=== PATIENT | female | born 1940 | race Caucasian/White ===

== ENCOUNTER 2017-10-11 14:17 | Outpatient (CLI) | payer MEDICARE | END 2017-10-11 14:18 | disposition home or self-care (01) | LOC: BICMAMMO 14:17 | PROVIDERS: ATTEND Family Medicine | DX: Z12.31 Encounter for screening mammogram for malignant neoplasm of breast (principal); Z13.820 Encounter for screening for osteoporosis; M81.0 Age-related osteoporosis without current pathological fracture; N28.1 Cyst of kidney, acquired | CPT/HCPCS: 76770; 77063; 77067; 77080 ==

== ENCOUNTER 2018-04-15 09:16 | Outpatient (CLI) | payer MEDICARE ==
--- NOTE | 2018-04-15 10:36 | ULT ---
ULTRASOUND RETROPERITONEUM COMPLETE: (RENAL) DATE: 04-15-18 HISTORY: 77-year-old female with chronic kidney disease, N18.2 and cystic kidney disease unspecified, Q61.9 COMPARISON: 10-11-17 FINDINGS: Right kidney measures 10 x 3.5 x 4 cm. Left kidney measures 10.5 x 5.5 x 5.5 cm. There is a very large, approximately 8 x 7.5 x 6 cm cyst exophytically protruding inferiorly from the lower pole of the left kidney. The measurements are larger than on the previous ultrasounds, but it is possible that the differences are due to slightly different placement of cursers. Pre void bladder volume is 35 ml at the time of this scan. There is no hydronephrosis bilaterally. Bilateral renal parenchymal thickness and parenchymal echogenicity are normal. IMPRESSION: 1. Large 8 cm exophytic cyst protruding from the lower pole of the left kidney. 2. No hydronephrosis. JN R POS: [facility]
== END 2018-04-15 09:17 | disposition home or self-care (01) ==
LOC: SCSULT 09:16
PROVIDERS: ATTEND Internal Medicine Nephrology
DX: N18.2 Chronic kidney disease, stage 2 (mild) (principal); Q61.9 Cystic kidney disease, unspecified; N28.1 Cyst of kidney, acquired
CPT/HCPCS: 76770

== ENCOUNTER 2018-05-14 08:56 | Inpatient (IN) | payer MEDICARE ==
[2018-05-14] MEDS ORDERED: Ondansetron PF 4 MG/2 ML Vial ONE (09:21)
[2018-05-14 09:24] LABS: Bilirubin Small (Negative); Blood, Urine Small (Negative); Clarity Slightly Cloudy (Clear); Glucose, Urine (Dipstick) Negative (Negative); Leukocyte Negative (Negative); Nitrite Negative (Negative); Protein, Urine (Dipstick) 30 mg/dL (Neg-Trace); Urobilinogen 0.2 mg/dL (0.2-1.0); pH, Urine 6.5 (5.0-9.0)
[2018-05-14 09:32] LABS: Bacteria/HPF Rare-Few HPF (None Seen); Hyaline Casts/LPF NONE SEEN LPF (0-3 Hyaline); Specific Gravity, Urine 1.025 (1.002-1.036); Squamous Epithelial 0-3 HPF (0-3); WBC/HPF 0-3 HPF (0-3)
[2018-05-14 09:40] LABS: #Basophils 0.2 thou/uL (0.0-0.2); #Lymphocytes 1.5 thou/uL (1.20-3.40); #Neutrophils 10.7 thou/uL (1.40-6.50); %Basophils 1.3 % (0.0-1.0); %Eosinophils 0.1 % (0.0-10.0); %Lymphocytes 11.5 % (21.0-51.0); %Monocytes 7.6 % (0.0-10.0); %Neutrophils 79.5 % (42.0-75.0); Hemoglobin 15.6 g/dL (12.0-16.0); Mean Corpuscular HGB CONC 31.6 g/dL (32.0-36.0); Mean Corpuscular Hemoglobin 28.5 pg (27.0-31.0); Mean Platelet Volume 6.8 fL (7.4-10.4); Platelet Count 264 thou/uL (130-400); RBC Distribution Width 11.8 % (11.5-14.5); Red Blood Cell (RBC) Count 5.47 mill/uL (4.20-5.40); White Blood Cell (WBC) Count 13.4 thou/uL (4.8-10.8)
[2018-05-14 09:54] LABS: ALT (SGPT) 281 U/L (8-55); AST (SGOT) 206 U/L (5-34); Albumin 4.1 g/dL (3.4-4.8); Alkaline Phosphatase 62 U/L (40-150); Anion Gap 14 mmol/L (10-20); BUN (Urea Nitrogen) 13 mg/dL (9.8-20.1); Bilirubin, Total 0.5 mg/dL (0.2-1.2); Calc. Creatinine Clearance 0 mL/min (70-130); Calcium 9.1 mg/dL (7.8-10.44); Carbon Dioxide 22 mmol/L (23-31); Chloride 104 mmol/L (98-107); Estimated GFR-MDRD 75; Globulin 2.6 g/dL (2.4-3.5); Glucose 133 mg/dL (83-110); Lipase 18 U/L (8-78); Potassium 3.9 mmol/L (3.5-5.1); Protein, Total 6.7 g/dL (6.0-8.3); Sodium 136 mmol/L (136-145)
[2018-05-14] MEDS ORDERED: Ciprofloxacin Lactate/D5W 400 mg/200 ml Premix ONE (10:08)
--- NOTE | 2018-05-14 10:44 | CT ---
CT ABDOMEN AND PELVIS WITHOUT CONTRAST: (STONE PROTOCOL) Date: 05/14/18 HISTORY: Pain. COMPARISON: None. FINDINGS: The lung bases are clear. No pericardial effusion. Aortoiliac contour is nonaneurysmal. There is severe submucosal edema, as well as inflammation along the mesentery of the cecum and ascend ing colon. There is moderate pericolonic fluid along the right paracolic gutter. There is moderate rai bmucosal edema and inflammation of the transverse colon. Small volume fluid left paracolic gutter. Si gmoid does not appear to be involved. Cecal apex is within the deep pelvis. There are small right-amy ed pericolonic lymph nodes. Moderate edema along the mesentery. There is also moderate retroperitonea l inflammation along the cecum. There is a large cyst along the inferior pole of the left kidney. There is no hydroureteronephrosis o r nephroureterolithiasis. No secondary evidence of recently passed stone. Small, fat-containing umbil ical hernia, with a 1.0 cm neck. Multiple calcified granulomas of the spleen. Noncontrast evaluation of the liver, pancreas, and gallbladder are unremarkable. Aortoiliac contour is nonaneurysmal. IMPRESSION: 1. Severe submucosal edema, as well as inflammation along the cecum and ascending colon, with modera te inflammation of the transverse colon, likely infectious or inflammatory in nature. No evidence for macroperforation, although patient is at high risk given the amount of subhepatic and deep pelvic fl uid, inflammatory response, and the submucosal edema. The possibility of an ischemic process is also possible. Recommend correlation with patient's lactic acid. If the lactic acid level is high or there is concern for ischemia, CT angiogram may be beneficial to evaluate for peripheral SMA vasculature. 2. No nephroureterolithiasis or hydroureteronephrosis. No secondary evidence of recently passed ston e. A follow-up examination after treatment is recommended, as well as a colonoscopy, given the patient's age. Cecal mesenteric lymph nodes are mildly prominent, which may be inflammatory or infectious or r eactive in nature. Metastatic involvement is felt less likely, although is why the follow-up is brittney gonzalez. POS: [facility]
[2018-05-14] MEDS ORDERED: Sodium Chloride 0.9% 1,000 ML IV SCH (11:56)
[2018-05-14] MEDS ORDERED: Ondansetron PF 4 MG/2 ML Vial IVP PRN ×2 (11:56→13:36)
[2018-05-14] MEDS ORDERED: Ondansetron ODT 4 MG TAB SL PRN (11:56)
[2018-05-14] MEDS ORDERED: metroNIDAZOLE 500 MG in Premix Bag 1 BAG IVPB SCH (12:00)
[2018-05-14] MEDS ORDERED: Morphine 2 MG/ML SYRINGE SLOW IVP PRN (13:05)
[2018-05-14] MEDS ORDERED: HYDROcodone/Acetaminophen 5/325 mg Tablet PO PRN (13:36)
[2018-05-14] MEDS ORDERED: Acetaminophen 325 MG TAB PO PRN (13:36)
[2018-05-14] MEDS ORDERED: hydrALAZINE 20 MG/ML VIAL SLOW IVP PRN (13:36)
[2018-05-14] MEDS ORDERED: Ondansetron ODT 4 MG TAB PO PRN (13:36)
[2018-05-14] MEDS: Morphine 4 MG/ML VIAL SLOW IVP PRN ×2 (13:42→17:40)
--- NOTE | 2018-05-14 14:18 | HP ---
PRIMARY CARE PHYSICIAN: Dr. Kanwal Marshall. CHIEF COMPLAINT: Abdominal pain, nausea, vomiting, and diarrhea. HISTORY OF PRESENT ILLNESS: Ms. Hyatt is a very pleasant 77-year-old female, who has no significant past medical history other than hyperlipidemia and gastroesophageal reflux disease. She says that she was doing fine until the 11 of May when she started having some severe lower abdominal pain, which was cramping in nature. She was also having some nausea and vomiting. She thought she might have had the flu and then the following day, it started to subside, but then it started back again yesterday and her symptoms were even worse. She said the pain was like 9 to 10/10 and the cramping abdominal pain was again about 9/10. She was also having some diarrhea and then on today, she had some bright red blood in the stool as well. She had some chills but no fever. She says there has been no other sick people in the household. She does not remember eating anything different. She did admit, however, that on April 12 through the , she and one of her daughters did a colon cleanse, where it was some type of supplement that they took along with juices and this was for 14 days and then even prior to that she had been on a keto diet, but in the last couple of weeks, she has been eating normally. She says that she had a colonoscopy about nine years ago. She said she had a few polyps, but was not told to come back. Otherwise, no other complaints. She says that she has lost about 5 pounds in the last month or so. REVIEW OF SYSTEMS: All systems were reviewed and are negative except for that mentioned in the history of present illness. PAST MEDICAL HISTORY: Significant for hyperlipidemia and gastroesophageal reflux disease. 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 ALLERGIES: SULFA. SOCIAL HISTORY: She is , has three children. She is a nonsmoker and nondrinker. FAMILY HISTORY: No history of any heritable diseases. MEDICATIONS: Currently none. CODE STATUS: DNR and her daughter, Mohini Trejo, is her surrogate decision maker. PHYSICAL EXAMINATION: GENERAL: She is alert and oriented. She appears to be in some distress due to abdominal cramping. She is well developed and well nourished. VITAL SIGNS: Blood pressure was 173/81, heart rate 90, respiratory rate of 18, and temperature is 98.8. HEENT: Pupils are equal, round, and reactive. Extraocular muscles are intact. Her sclerae are anicteric. Throat, there is no erythema. No exudates. NECK: No adenopathy. No bruits. LUNGS: Clear to auscultation. There is no wheezing, no rales, no rhonchi. CARDIOVASCULAR: She had a normal S1 and S2. There is no S3 or S4. No murmurs, clicks, or rubs. ABDOMEN: Soft. She does have primarily right lower quadrant tenderness; however, the tenderness is diffuse, but more localized in the right lower quadrant. There is no organomegaly. Bowel sounds are present and there is no rebound or guarding. EXTREMITIES: There is no clubbing or cyanosis. No edema. NEUROLOGIC: Exam is nonfocal. LABORATORY DATA: White blood cell count 13.4, hemoglobin 15.6, hematocrit is 49.2, platelet count is 264. Sodium 136, potassium 3.9, chloride is 104, CO2 is 22, BUN of 13, creatinine 0.75, glucose 133, AST is 206, ALT is 281. Urinalysis was negative except for some trace amount of protein and rbc's. ASSESSMENT: This is a pleasant 77-year-old female, who presents with severe abdominal cramping, nausea, vomiting, and diarrhea. She had a CT scan in the ER that showed significant area of inflammation along the mesentery of the cecum and ascending colon with some pericolonic fluid, which was concerning for colitis and possibly even ischemic colitis. For this reason, she is being admitted for ischemic colitis versus infectious colitis. We will treat her as if this is an infectious process and continue Cipro and Flagyl. Continue IV fluids and place her on bowel rest with ice chips only at least for the first 12 to 24 hours. Given the extensive nature of the inflammation as well as the elevation of her transaminases, GI will be consulted. 1. Elevated transaminases or hepatitis. The etiology is unknown, likely due to the inflammatory process in the colon. We will check a hepatitis profile and GI once again will be consulted. 2. Gastroesophageal reflux disease. She will be placed on Protonix IV. 3. She will be placed on DVT and GI prophylaxis. Job ID: [id number]
[2018-05-14] MEDS: NS 0.9% w/ 20 MEQ KCL 1,000 ML/1,000 ML BAG IV SCH (14:46)
--- NOTE | 2018-05-14 15:52 | CON ---
DATE OF CONSULTATION: 05/14/2018 REASON FOR CONSULTATION: Severe colitis. HISTORY OF PRESENT ILLNESS: Lore Hyatt is a 77-year-old woman with a history of hyperlipidemia, GERD, and hysterectomy. She takes only Aleve twice per day for some arthritic complaints that she has. She has no prior significant gastrointestinal history. She says she had a colonoscopy at [facility] about 9 years ago with a couple of small polyps removed and no recommendation for repeat colonoscopy. She has no chronic gastrointestinal symptoms. Two days ago, she had the acute onset of severe generalized cramping abdominal pain. This started to be more in the lower abdomen and a bit to the right side. This was accompanied by nausea and multiple episodes of vomiting and then diarrhea. The diarrhea was initially watery, lasted all day yesterday, and then this morning, she had a bowel movement and there was, what appeared to her to be, a large amount of bright red blood. This had never happened before. There was no presyncope or lightheadedness with this. No fever, though she has had some chills. Her abdominal cramping pain persists. She has not had any bowel movement since admission earlier today. Upon admission, labs showed a normal lactic acid level, but elevation in transaminases with AST and ALT both over 200. Normal total bilirubin. Her hemoglobin is normal at 15.6, although she does have leukocytosis to 13.4. A CT scan of the abdomen and pelvis shows severe inflammatory changes around the cecum and ascending colon with more moderate inflammatory changes in the transverse colon and moderate mesenteric edema. This is read as consistent with infectious versus ischemic colitis. There were a few small pericecal lymph nodes as well. She was started on ciprofloxacin and Flagyl. Stool studies have been ordered, but not yet sent. She is getting morphine for pain and says it has some modest efficacy at this time. REVIEW OF SYSTEMS: Full review of systems including constitutional, head, eyes, ears, nose, throat, GI, , cardiovascular, respiratory, musculoskeletal, neurologic systems is negative except as noted in the HPI. PAST MEDICAL HISTORY: Hyperlipidemia, GERD, colon polyps with last colonoscopy 9 years ago, hysterectomy, and TMJ surgery. ALLERGIES: SULFA. OUTPATIENT MEDICATIONS: Aleve twice daily. SOCIAL HISTORY: No smoking or alcohol use. FAMILY HISTORY: Noncontributory. PHYSICAL EXAMINATION: VITAL SIGNS: Temperature 98.8, pulse 90, blood pressure 173/81, and 94% oxygen saturation on room air. GENERAL: In no acute distress. HEART: Regular rate and rhythm. LUNGS: Clear to auscultation bilaterally. ABDOMEN: Bowel sounds are present. Soft. Tender to palpation in the right lower quadrant. No guarding or rebound tenderness. EXTREMITIES: No peripheral edema. VESSELS: Radial pulses 2+ bilaterally. NEUROLOGIC: Cranial nerves 2 through 12 intact bilaterally. No focal deficits. SKIN: No jaundice or no rashes were palpable. EYES: No scleral icterus. Extraocular movements intact. ENT: Mucous membranes moist. No oral lesions. LYMPHS: No submandibular or supraclavicular lymphadenopathy. Thyroid nontender to palpation. LABORATORY STUDIES: WBC 13.4, hemoglobin 15.6, and platelets 264. Sodium 136, potassium 3.9, BUN 13, creatinine 0.75, glucose 133, lactic acid only 1.1, total bilirubin 0.5, alkaline phosphatase 62, AST elevated to 206, ALT elevated to 281. Lipase normal at 18. Albumin normal at 4.1. Stool studies are ordered and pending. IMAGING STUDIES: CT of the abdomen and pelvis as detailed in the HPI. ASSESSMENT AND PLAN: 1. Acute right-sided colitis. Note, the patient's lactic acid is normal. I doubt acute colonic ischemia on the right side of the colon, particularly with normal lactic acid level. I think it is more likely that this represents an infectious process. Consider Campylobacter, E coli, Salmonella, Shigella, etc. Stool studies have already been ordered. Follow up those results. I agree with the empiric ciprofloxacin and Flagyl for now. The patient is going to need followup colonoscopy, but we should plan for this a few weeks out once the patient's acute illness has resolved. Otherwise, continue current supportive care. Advance diet slowly as tolerated. 2. Elevated transaminases. In this clinical setting, her transaminase elevation is likely just reactive from her acute colitis. Some further lab workup is indicated. We will order autoimmune markers and viral hepatitis serologies. We will check INR and trend LFTs daily while here. I expect these will normalize as her symptoms improve. Thank you for the consultation. GI will follow along. Please call anytime with questions or concerns. Job ID: [id number]
[2018-05-14] MEDS: metroNIDAZOLE 500 MG in Premix Bag 1 BAG IVPB SCH (17:43)
[2018-05-14] MEDS: Ketorolac Tromethamine 30 MG/ML VIAL IVP PRN (21:33)
[2018-05-15] MEDS: metroNIDAZOLE 500 MG in Premix Bag 1 BAG IVPB SCH ×4 (00:07→17:41)
[2018-05-15] MEDS: Morphine 4 MG/ML VIAL SLOW IVP PRN (00:14)
[2018-05-15] MEDS: NS 0.9% w/ 20 MEQ KCL 1,000 ML/1,000 ML BAG IV SCH ×2 (02:47→14:07)
[2018-05-15] MEDS: Ketorolac Tromethamine 30 MG/ML VIAL IVP PRN ×4 (03:41→23:13)
[2018-05-15 04:53] LABS: INR-International Normal Ratio 0.8; Prothrombin Time 11.4 SEC (12.0-14.7)
[2018-05-15 04:55] LABS: #Basophils 0.1 thou/uL (0.0-0.2); #Eosinphils 0.3 thou/uL (0.0-0.7); #Lymphocytes 2.6 thou/uL (1.20-3.40); #Monocytes 1.4 thou/uL (0.11-0.59); #Neutrophils 9.2 thou/uL (1.40-6.50); %Basophils 0.6 % (0.0-1.0); %Eosinophils 2.1 % (0.0-10.0); %Monocytes 10.2 % (0.0-10.0); %Neutrophils 68.1 % (42.0-75.0); Hemoglobin 13.4 g/dL (12.0-16.0); Mean Corpuscular HGB CONC 34.4 g/dL (32.0-36.0); Mean Corpuscular Hemoglobin 31.4 pg (27.0-31.0); Mean Corpuscular Volume 91.4 fL (78.0-98.0); Platelet Count 250 thou/uL (130-400); RBC Distribution Width 12.3 % (11.5-14.5); Red Blood Cell (RBC) Count 4.27 mill/uL (4.20-5.40); White Blood Cell (WBC) Count 13.6 thou/uL (4.8-10.8)
[2018-05-15 05:07] LABS: ALT (SGPT) 152 U/L (8-55); AST (SGOT) 83 U/L (5-34); Albumin 3.1 g/dL (3.4-4.8); Alkaline Phosphatase 48 U/L (40-150); Bilirubin, Direct 0.2 mg/dL (0.1-0.3); Bilirubin, Total 0.4 mg/dL (0.2-1.2); Protein, Total 5.1 g/dL (6.0-8.3)
[2018-05-15 05:08] LABS: Anion Gap 10 mmol/L (10-20); BUN (Urea Nitrogen) 11 mg/dL (9.8-20.1); Calc. Creatinine Clearance 86 mL/min (70-130); Calcium 8.1 mg/dL (7.8-10.44); Carbon Dioxide 23 mmol/L (23-31); Chloride 108 mmol/L (98-107); Estimated GFR-MDRD 83; Glucose 97 mg/dL (83-110); Iron 81 ug/dL (50-170); Iron Binding Capacity, Total 223 mcg/dL (265-497); Potassium 3.9 mmol/L (3.5-5.1); Sodium 137 mmol/L (136-145)
[2018-05-15 05:26] LABS: Ferritin 73.13 ng/mL (10-291)
[2018-05-15 05:40] LABS: HBCM Index 0.05 S/CO (0-0.79); HBSAg Index 0.19 S/CO (0-0.99); Hep A IgM AB Non-Reactive (NonReactive); Hep A IgM S/CO 0.12 S/CO (0-0.79); Hep B Surf Ag Non-Reactive S/CO (NonReactive); Hep C IgG Ab Non-Reactive (NonReactive); Hep C Index 0.05 S/CO (0-0.79); Hepatitis B Core IgM Abs Non-Reactive (NonReactive)
--- NOTE | 2018-05-15 08:01 | PDOC.PN ---
- Subjective Encounter Start Date: 05/15/18 Encounter Start Time: 08:00 Ms. Hyatt was seen today in follow-up of colitis. She says the abdominal pain and cramping has improved. She continues to notes some rectal bleeding. - Objective Resuscitation Status - Order Detail: 05/14/18 13:31 Resuscitation Status Routine Resuscitation Status: DNAR: NO Resuscitation Discussed with: Per the patient MAR Reviewed: Yes Vital Signs & Weight: Vital Signs (12 hours) Temp Pulse Resp BP BP Pulse Ox 05/15/18 03:45 98.8 F 69 16 121/63 90 L 05/15/18 00:10 98.9 F 79 16 122/62 92 L 05/14/18 20:20 94 L 05/14/18 20:00 98.7 F 78 16 138/70 94 L Weight Weight 175 lb 1 oz I&O: 05/14/18 05/15/18 05/16/18 06:59 06:59 06:59 Intake Total 2224 Balance 2224 Result Diagrams: 05/15/18 04:34 05/15/18 04:34 Phys Exam - Physical Examination HEENT: PERRLA Respiratory: no wheezing, no rales, no rhonchi, clear to auscultation bilateral Cardiovascular: RRR, no significant murmur, no rub Gastrointestinal: soft, no distention, positive bowel sounds + mild diffuse tenderness Musculoskeletal: no edema, pulses present Dx/Plan (1) Infectious colitis Code(s): A09 - INFECTIOUS GASTROENTERITIS AND COLITIS, UNSPECIFIED Status: Acute (2) Elevated transaminase level Code(s): R74.0 - NONSPEC ELEV OF LEVELS OF TRANSAMNS & LACTIC ACID DEHYDRGNSE Status: Acute (3) GERD (gastroesophageal reflux disease) Code(s): K21.9 - GASTRO-ESOPHAGEAL REFLUX DISEASE WITHOUT ESOPHAGITIS Status: Chronic (4) Dyslipidemia Code(s): E78.5 - HYPERLIPIDEMIA, UNSPECIFIED Status: Chronic - Plan * Infectious Colitis- improving- will continue Cipro and Flagyl, and advance diet to clear liquids * Stool studies are negative, and Hepatitis panel as well. * Transaminases are improving * GERD- continue Protonix * Dyslipidemia- stable.
[2018-05-15] MEDS: Enoxaparin Sodium 40 MG/0.4 ML SYRINGE SC SCH (08:47)
--- NOTE | 2018-05-15 15:05 | PRG ---
DATE OF SERVICE: 05/15/2018 GI INPATIENT DAILY PROGRESS NOTE. SUBJECTIVE: Ms. Hyatt says she is feeling quite a bit better today. Her abdominal cramping pain continues, but it is less frequent and less severe. She has had several further bloody bowel movements today. There is no nausea or vomiting. She has tolerated a clear liquid diet and is moving up to a full liquid diet at this time. She has otherwise been hemodynamically stable and afebrile. OBJECTIVE: VITAL SIGNS: Temperature 98.4, pulse 76, blood pressure 126/59, and 94% oxygen saturation on 1 L nasal cannula. GENERAL: No acute distress. HEART: Regular rate and rhythm. LUNGS: Clear to auscultation bilaterally. ABDOMEN: Nondistended. Bowel sounds are present. Soft. Tender to palpation in the lower abdomen and on the left side, but no guarding or rebound tenderness. EXTREMITIES: No peripheral edema. LABORATORY DATA: WBC 13.6, hemoglobin 13.4, platelets 250. INR is only 0.8. LFTs have declined with AST down to 83, ALT down to 152, total bilirubin only 0.4, alkaline phosphatase only 48. Ferritin is normal at 73.3, iron 81, TIBC 223. LORRAINE is pending. Viral hepatitis panel is negative for hepatitis A, B, and C. ASSESSMENT AND PLAN: 1. Acute right-sided colitis, likely infectious. I note stool studies show negative Campylobacter, negative Clostridium difficile, negative Shiga toxin. Clinically, her presentation is still most consistent with an acute infectious colitis. Recommend continuing current supportive cares, IV fluids, analgesics, and continued ciprofloxacin and Flagyl. Agree with slowly advancing her diet as tolerated. I anticipate symptoms will continue to improve over the next couple of days. 2. Elevated LFTs. This is likely just reactive to her severe colitis. LFTs are trending down appropriately. Still awaiting LORRAINE, but notes a negative viral hepatitis serologies and normal iron studies. Job ID: [id number]
[2018-05-16] MEDS ORDERED: Melatonin 3 MG TAB PO PRN (00:20)
[2018-05-16] MEDS: metroNIDAZOLE 500 MG in Premix Bag 1 BAG IVPB SCH ×3 (00:28→11:25)
[2018-05-16] MEDS: NS 0.9% w/ 20 MEQ KCL 1,000 ML/1,000 ML BAG IV SCH ×2 (02:38→16:24)
--- NOTE | 2018-05-16 07:54 | PDOC.PN ---
- Subjective Encounter Start Date: 05/16/18 Encounter Start Time: 07:52 Ms. Hyatt was seen today in follow-up of Infectious colitis. - Objective Resuscitation Status - Order Detail: 05/14/18 13:31 Resuscitation Status Routine Resuscitation Status: DNAR: NO Resuscitation Discussed with: Per the patient MAR Reviewed: Yes Vital Signs & Weight: Vital Signs (12 hours) Temp Pulse Resp BP Pulse Ox 05/15/18 20:30 97.6 F 82 16 124/58 L 95 Weight Admit Weight 175 lb 1 oz Weight 180 lb 1 oz I&O: 05/15/18 05/16/18 05/17/18 06:59 06:59 06:59 Intake Total 2224 2900 Balance 2224 2900 Result Diagrams: 05/15/18 04:34 05/15/18 04:34 Phys Exam - Physical Examination HEENT: PERRLA Respiratory: no wheezing, no rales, no rhonchi, clear to auscultation bilateral Cardiovascular: RRR, no significant murmur, no rub Gastrointestinal: soft, non-tender, no distention, positive bowel sounds Musculoskeletal: no edema Dx/Plan (1) Infectious colitis Code(s): A09 - INFECTIOUS GASTROENTERITIS AND COLITIS, UNSPECIFIED Status: Acute (2) Elevated transaminase level Code(s): R74.0 - NONSPEC ELEV OF LEVELS OF TRANSAMNS & LACTIC ACID DEHYDRGNSE Status: Acute (3) GERD (gastroesophageal reflux disease) Code(s): K21.9 - GASTRO-ESOPHAGEAL REFLUX DISEASE WITHOUT ESOPHAGITIS Status: Chronic (4) Dyslipidemia Code(s): E78.5 - HYPERLIPIDEMIA, UNSPECIFIED Status: Chronic - Plan * Infectious colitis- she continues to improve. Will try some solid food this morning * If she tolerates her diet, then discharge home on the current antibiotics * Close follow-up with her Primary Care Provider, and Outpatient Colonoscopy.
[2018-05-16] MEDS ORDERED: Loperamide HCl 2 MG CAP PO PRN (07:55)
[2018-05-16 08:26] VITALS: BP 138/70; TEMP 97.4
[2018-05-16] MEDS: Ketorolac Tromethamine 30 MG/ML VIAL IVP PRN ×2 (08:39→16:57)
[2018-05-16] MEDS: Enoxaparin Sodium 40 MG/0.4 ML SYRINGE SC SCH (08:41)
[2018-05-16 12:18] VITALS: BMI 29.0
--- NOTE | 2018-05-16 12:27 | PRG ---
DATE OF SERVICE: 05/16/2018 GI INPATIENT DAILY PROGRESS NOTE SUBJECTIVE: Ms. Hyatt says she is feeling overall better, though this morning she has had some significant abdominal cramping pain still. She is still having loose bowel movements, but the bleeding is resolved. No nausea or vomiting. No fever. She has advanced to a regular diet this morning and that went okay. PHYSICAL EXAMINATION: VITAL SIGNS: Temperature 97.4, pulse 66, blood pressure 138/70, and 94% oxygen saturation on room air. GENERAL: No acute distress. HEART: Regular rate and rhythm. LUNGS: Clear to auscultation bilaterally. ABDOMEN: Bowel sounds present. Soft and nontender to palpation. The upper abdomen platinum and palladium kettle tender to palpation in the lower abdomen. EXTREMITIES: No peripheral edema. ASSESSMENT AND PLAN: Acute right-sided colitis, slowly improving. I agree with the plan for hospital discharge once the patient is tolerating her diet. Pain can adequately be controlled with oral medications. I would continue the ciprofloxacin and Flagyl in oral form for a total of 7 to 10 days as an outpatient. We will plan to see her back in my clinic in the next 2 to 3 weeks for followup. At that point, we will likely be scheduling her for followup colonoscopy. GI will sign off. Dr. Dudley is covering this weekend if the patient is not discharged and there are any questions or concerns. Job ID: [id number]
[2018-05-16 14:36] LABS: ANA Symphony (Qualitative) Negative (Negative); ANA Symphony (Quantitative) 0.1 Ratio (< 0.7 Negative); EliA Vaculitis New Method **** NEW METHOD ****; Mitochondrial Ab Less than 0.5 U/mL (<4 Negative); dsDNA IgG Antibody 0.6 IU/mL (<10 Negative)
--- NOTE | 2018-05-19 09:50 | DIS ---
DATE OF ADMISSION: 05/14/2018 DATE OF DISCHARGE: 05/16/2018 PRIMARY CARE PHYSICIAN: Dr. Kanwal Marshall. DISCHARGE DISPOSITION: Home. PRIMARY DISCHARGE DIAGNOSES: 1. Colitis, presumed infectious. 2. Elevated transaminases, likely due to #1. 3. Hyperlipidemia. DISCHARGE MEDICATIONS: Include Cipro 500 mg twice daily as well as Flagyl 500 mg t.i.d. PROCEDURES DONE DURING THE ADMISSION AND TESTING: Included a CT scan of the abdomen and pelvis, showing severe submucosal edema as well as inflammation along the cecum and ascending colon. There is a moderate amount of inflammation of the transverse colon, it was likely infectious or inflammatory in nature. There was no evidence of macroperforation, although she was high risk given the amount of subhepatic and deep pelvic fluid and inflammatory response. There was no nephroureterolithiasis or hydroureter. The patient also had stool studies done which were negative for C diff and Campylobacter as well as E coli and the coli toxigenic strain. CODE STATUS: Full code. ALLERGIES: SULFA. CONSULTANTS DURING ADMISSION: The patient was seen by Gastroenterology. HOSPITAL COURSE: Ms. Hyatt is a pleasant 77-year-old female who presented to the emergency room complaining of severe abdominal pain, nausea, vomiting, and diarrhea. She also had some bloody stools as well. She was evaluated in the ER and CT findings were suspicious for fairly severe colitis. She was brought into the hospital and placed on IV fluids as well as IV antibiotics presumptively. Stool studies were done which were negative. She improves with IV fluids and IV antibiotics. She was seen by floor broker who recommended a colonoscopy after the patient has improved and this acute illness has resolved. At the time of discharge, the patient had stopped having loose stools and there was no longer any hematochezia or blood in the stools. She was tolerating a solid diet, and was afebrile, and will continue the course of ciprofloxacin and Flagyl, and have close outpatient followup. Job ID: [id number]
== END 2018-05-16 17:33 | disposition home or self-care (01) | DRG 392 ==
LOC: SCSER 08:56 → ONC 11:15
PROVIDERS: ADMIT Internal Medicine; ATTEND Internal Medicine
DX: A09 Infectious gastroenteritis and colitis, unspecified (principal); E78.5 Hyperlipidemia, unspecified; K21.9 Gastro-esophageal reflux disease without esophagitis; Z66 Do not resuscitate; Z90.710 Acquired absence of both cervix and uterus; Z98.890 Other specified postprocedural states; Z88.2 Allergy status to sulfonamides; Z86.010 Personal history of colon polyps
CPT/HCPCS: 36415; 74176; 80048; 80053; 80074; 80076; 81003; 81015; 82728; 83516; 83540; 83550; 83605; 83690; 85025; 85610; 86038; 86225; 87324; 87328; 87329; 87449; 87899; 96361; 96365; 96372; 96375; J0744; J1650; J1885; J2270; J2405

== ENCOUNTER 2018-05-22 18:42 | Emergency (ER) | payer MEDICARE ==
[2018-05-22] MEDS ORDERED: Ondansetron PF 4 MG/2 ML Vial ONE (19:13)
[2018-05-22] MEDS ORDERED: Ketorolac Tromethamine 30 MG/ML VIAL ONE (19:13)
[2018-05-22 19:35] LABS: ALT (SGPT) 174 U/L (8-55); AST (SGOT) 152 U/L (5-34); Albumin 4.1 g/dL (3.4-4.8); Alkaline Phosphatase 87 U/L (40-150); Anion Gap 16 mmol/L (10-20); BUN (Urea Nitrogen) 16 mg/dL (9.8-20.1); Bilirubin, Total 0.4 mg/dL (0.2-1.2); Calc. Creatinine Clearance 0 mL/min (70-130); Calcium 9.3 mg/dL (7.8-10.44); Carbon Dioxide 22 mmol/L (23-31); Chloride 102 mmol/L (98-107); Estimated GFR-MDRD 75; Globulin 2.5 g/dL (2.4-3.5); Glucose 101 mg/dL (83-110); Lipase 53 U/L (8-78); Potassium 4.2 mmol/L (3.5-5.1); Protein, Total 6.6 g/dL (6.0-8.3); Sodium 136 mmol/L (136-145)
[2018-05-22 19:40] LABS: Band 5 % (5-11); Eosinophils 3 % (0-10); Hemoglobin 15.6 g/dL (12.0-16.0); Lymphocytes 8 % (21-51); MDiff Complete? YES; Mean Corpuscular HGB CONC 34.4 g/dL (32.0-36.0); Mean Corpuscular Hemoglobin 30.2 pg (27.0-31.0); Mean Corpuscular Volume 87.6 fL (78.0-98.0); Mean Platelet Volume 6.1 fL (7.4-10.4); Monocytes 16 % (0-10); Neutrophil 64 % (42-75); PLT Morphology Comment Appears Adequate; Platelet Count 374 thou/uL (130-400); RBC Distribution Width 12.2 % (11.5-14.5); Reactive Lymphocytes 4 % (0-10); Red Blood Cell (RBC) Count 5.16 mill/uL (4.20-5.40)
[2018-05-22 20:39] LABS: Bilirubin Small (Negative); Blood, Urine Trace (Negative); Clarity Clear (Clear); Glucose, Urine (Dipstick) Negative (Negative); Leukocyte Trace (Negative); Nitrite Negative (Negative); Protein, Urine (Dipstick) Negative (Neg-Trace); Urobilinogen 0.2 mg/dL (0.2-1.0)
[2018-05-22 20:45] LABS: WBC/HPF 0-3 HPF (0-3)
[2018-05-22 20:46] LABS: Bacteria/HPF Rare-Few HPF (None Seen); Crystals/HPF 1+ CA OXALATE HPF (Negative); Renal Epithelial 0-3 HPF (0-3); Squamous Epithelial 0-3 HPF (0-3)
== END 2018-05-22 21:29 | disposition home or self-care (01) ==
LOC: SCSER 18:42
DX: R10.9 Unspecified abdominal pain (principal); R10.812 Left upper quadrant abdominal tenderness; E78.5 Hyperlipidemia, unspecified; R11.2 Nausea with vomiting, unspecified
CPT/HCPCS: 80053; 81003; 81015; 83690; 85025; 96361; 96374; 96375; J1885; J2405

== ENCOUNTER 2018-07-08 08:23 | Outpatient (CLI) | payer MEDICARE ==
[2018-07-08 09:19] LABS: Anion Gap 14 mmol/L (10-20); BUN (Urea Nitrogen) 9 mg/dL (9.8-20.1); Calc. Creatinine Clearance 0 mL/min (70-130); Calcium 9.3 mg/dL (7.8-10.44); Carbon Dioxide 28 mmol/L (23-31); Chloride 103 mmol/L (98-107); Estimated GFR-MDRD 72; Glucose 99 mg/dL (83-110); Potassium 4.7 mmol/L (3.5-5.1); Sodium 140 mmol/L (136-145)
[2018-07-08] MEDS ORDERED: Iopamidol 370 76% 100 ML VIAL ONE (09:58)
--- NOTE | 2018-07-08 11:05 | RAD ---
IVP: HISTORY: Microhematuria. COMPARISON: CTA abdomen from 07/08/2018. TECHNIQUE: An IVP was performed. A intelligence research specialist radiograph showed no calcifications projecting over either kidney. Th e patient was taken to CT, where contrast was given. After administration of contrast, the patient w as brought back to the radiology department for continuation of the IVP. FINDINGS: There are bilateral symmetric nephrograms. Contrast is seen in both renal collecting systems. No hy dronephrosis is seen. Both ureters were seen in their entirety without filling defects. The urinary bladder is unremarkable. No significant post void residual is seen. IMPRESSION: Normal intravenous pyelogram. POS: [facility]
--- NOTE | 2018-07-08 11:27 | CT ---
CONTRAST ENHANCED CTA ABDOMEN AND PELVIS: History: Ischemic colitis. Technique: Contrast enhanced CTA of the abdomen and pelvis obtained. 2D and 3D reconstructed images p erformed on an independent 3D workstation. FINDINGS: The lung base are unremarkable. The liver and spleen are unremarkable. Some calcified granuloma is seen in the spleen. The gallbladde r and pancreas are unremarkable. Adrenal glands unremarkable. There is a large 6.5 x 8.0 cm cortical cyst seen in the left kidney. There is an area of proximal celiac artery stenosis, superior-inferior length measures approximately 1.3 cm with proximal celiac artery with approximately 75% caliber reduction. More distally the celiac artery is patent. The superior mesenteric artery is patent along its course without evidence of significant calcificati ons. Mesenteric artery is patent. Aorta is mildly calcified. Renal arteries are patent. Vacuum disc changes seen at L4-5 and L5-S1. IMPRESSION: 1. 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 2. A small right paracentral anterior abdominal wall hernia is present with herniation of fat adjacen t to the umbilicus without evidence of bowel herniation. POS: [facility]
== END 2018-07-08 08:24 | disposition home or self-care (01) ==
LOC: RAD 08:23
PROVIDERS: ATTEND Internal Medicine
DX: K55.9 Vascular disorder of intestine, unspecified (principal); N28.1 Cyst of kidney, acquired; R31.29 Other microscopic hematuria; R94.5 Abnormal results of liver function studies; I77.4 Celiac artery compression syndrome; K43.9 Ventral hernia without obstruction or gangrene
CPT/HCPCS: 36415; 74174; 74410; 80048; Q9967

== ENCOUNTER 2018-10-08 07:57 | Outpatient (CLI) | payer MEDICARE ==
--- NOTE | 2018-10-08 08:10 | RAD ---
XR Hand Lt 3 View STANDARD: 10/08/2018 12:00 AM CLINICAL INDICATION: Pain, arthralgia COMPARISON: None. FINDINGS: Fracture:No fracture. Arthropathy:Mild arthropathy. Greatest involvement is at first CMC joint. Incidental findings:None of significance. IMPRESSION: 1. No acute osseous abnormality. 2. Mild osteoarthritis.
== END 2018-10-08 07:58 | disposition home or self-care (01) ==
LOC: BICRAD 07:57
PROVIDERS: ATTEND Family Medicine
DX: M25.542 Pain in joints of left hand (principal); M18.12 Unilateral primary osteoarthritis of first carpometacarpal joint, left hand
CPT/HCPCS: 36415; 80048; 80061; 81001; 82306; 84439; 84443; 84550; 87086

== ENCOUNTER 2018-10-15 09:46 | Outpatient (CLI) | payer MEDICARE ==
--- NOTE | 2018-10-15 10:22 | MMO ---
Bilateral MAMMO Bilat Screen [facility]. CLINICAL HISTORY: Patient is 77 years old and is seen for screening. The patient has no family history of breast cancer. The patient has no personal history of cancer. The patient has a history of left needle biopsy in 1999 - benign. VIEWS: The views performed were: bilateral craniocaudal with tomosynthesis and bilateral mediolateral oblique with tomosynthesis. FILMS COMPARED: The present examination has been compared to a prior imaging study performed at [facility] on 10/11/2017. MAMMOGRAM FINDINGS: There are scattered fibroglandular densities. There are stable benign appearing calcifications seen in both breasts. There are no suspicious masses, suspicious calcifications, or new areas of architectural distortion. IMPRESSION: THERE IS NO MAMMOGRAPHIC EVIDENCE OF MALIGNANCY. A ROUTINE FOLLOW-UP MAMMOGRAM IN 1 YEAR IS RECOMMENDED. THE RESULTS OF THIS EXAM WERE SENT TO THE PATIENT. ACR BI-RADS Category 2 - Benign finding MAMMOGRAPHY NOTE: 1. A negative mammogram report should not delay a biopsy if a dominant of clinically suspicious mass is present. 2. Approximately 10% to 15% of breast cancers are not detected by mammography. 3. Adenosis and dense breasts may obscure an underlying neoplasm.
== END 2018-10-15 09:47 | disposition home or self-care (01) ==
LOC: BICMAMMO 09:46
PROVIDERS: ATTEND Family Medicine
DX: Z12.31 Encounter for screening mammogram for malignant neoplasm of breast (principal)
CPT/HCPCS: 77063; 77067